=== PATIENT | male | born 1945 | race Caucasian/White ===

== ENCOUNTER 2018-07-12 05:02 | Inpatient (IN) ==
--- NOTE | 2018-07-08 09:25 | Anesthesiology Consultation ---
Date of Service July 08, 2018 Assessment & Plan (1) Encounter for pre-operative examination: Chart Review Chart Review: Acceptable Risk for Surgery and Patient NOT seen in Pre Admission Testing Consults Requested none History Surgery Operation Date: 07/12/18 07:15 Proposed Procedures p Transurethral Resection Prostate - Jean Claude Jeronimo MD Height/Weight Height: 5 ft 7 in Weight: 90.718 kg Allergies Allergy/AdvReac Type Severity Reaction Status Date / Time No Known Allergies Allergy Unverified 09/07/12 06:57 Medications Home Medications Medication Instructions Recorded Confirmed Last Taken cephalexin 500 mg PO TID 06/30/18 06/30/18 06/30/18 cholecalciferol (vitamin D3) 2,000 unit PO QAM 06/30/18 06/30/18 Unknown [Vitamin D3] finasteride 5 mg PO QPM 06/30/18 06/30/18 06/29/18 rosuvastatin 20 mg PO QPM 06/30/18 06/30/18 06/29/18 tamsulosin 0.4 mg PO QPM 06/30/18 06/30/18 06/29/18 Past Medical History Medical History Enlarged prostate Hyperlipidemia Past Family History Family History Brother Family history of prostate cancer Father Family history of prostate cancer Past Surgical History Surgical History History of colonoscopy Hx of LASIK BILATERAL Social History Smoking Status: Former smoker tobacco type: cigarettes Do You Dip or Chew Tobacco: No Smoking End Date: QUIT 40 YRS AGO Hx Alcohol Use: Yes Alcohol type: beer Alcohol Intake Frequency Comment: NONE OVER LAST MONTH/ RARE Hx Substance Use: No substance use type: does not use Testing Electrocardiogram Date: 03/24/18 Findings: + SB @ (59) sinus bradycardia with fusion complexes. otherwise normal ecg. Chest X-Ray Date: 06/24/18 Findings: + NAD
[2018-07-12] MEDS ORDERED: LR 15ML/HR IV SCH (06:00)
[2018-07-12] MEDS ORDERED: cefTRIAXone SODIUM 1,000 MG in DEXTROSE 5% 50 ML IV SCH (06:00)
[2018-07-12] MEDS ORDERED: fentaNYL citrate 100 MCG/2 ML VIAL ONE (06:38)
[2018-07-12] MEDS ORDERED: DEXAMETHASONE SOD INJ 4 MG/ML VIAL ONE (06:38)
[2018-07-12] MEDS ORDERED: LIDOCAINE HCL 2% 2 ML VIAL/AMP(20MG/ML) INFIL ONE (06:38)
[2018-07-12] MEDS ORDERED: ONDANSETRON INJ 2 MG/ML 2 ML VIAL ONE (06:38)
[2018-07-12] MEDS ORDERED: PROPOFOL IV EMULSION 10 MG/ML 20 ML VIAL IV ONE (06:38)
[2018-07-12] MEDS ORDERED: ONDANSETRON INJ 2 MG/ML 2 ML VIAL IV PRN ×2 (06:56→10:08)
[2018-07-12] MEDS ORDERED: LABETALOL HCL IV 5 MG/ML 20ML IV PRN (06:56)
[2018-07-12] MEDS ORDERED: ATROPINE SULFATE 0.1 MG/ML 10ML SYR IV PRN (06:56)
--- NOTE | 2018-07-12 07:15 | History & Physical Bridge Note ---
Date of Service July 12, 2018 History & Physical Bridge Note I have examined the patient, reviewed the History & Physical and in the interval since the performance of the History & Physical I have noted the following changes of clinical significance: no changes noted
[2018-07-12] MEDS ORDERED: ePHEDrine sulfate 50 MG/ML SYR ONE (08:50)
--- NOTE | 2018-07-12 09:06 | Operative Report ---
Post Operative Report Pre & Post Diagnosis Operation Date: 07/12/18 07:15 Pre-Op Diagnosis: Benign Prostatic Hyperplasia; Urinary Retention Post-Op Diagnosis: Benign Prostatic Hyperplasia; Urinary Retention Procedure Operation Date: 07/12/18 07:15 Actual Procedures p Transurethral Resection Prostate(Not Applicable) - Jean Claude Jeronimo MD Surgeon Pino Jeronimo MD Meat Department Manager none Estimated Blood Loss 5 Findings Consistent with Post-Op Diagnosis Specimens Prostate chips Description of Procedure Patient was identified in the preoperative holding area, appropriate informed consents reviewed and completed and the patient was transported to the operating suite. Upon arrival he received appropriate preoperative antibiotics in the form of ciprofloxacin. Adequate general anesthesia was achieved and the patient was placed in dorsal lithotomy position where he was sterilely prepped and draped in standard fashion. To begin the case I passed a 27 Guyanese resectoscope with 30 degree lens and visual armored machine operator. Inspection of the urethra revealed no evidence of stricture disease. His prostate was notably enlarged with substantial lateral lobe hypertrophy as well as a large intravesical median lobe. Inspection of the bladder was limited secondary to the intravesical median lobe. After performing my maximal inspection, exchange the visual obturator for a resecting element, initially choosing a button electrode. I incised the bladder neck at 5 and 7:00 which allowed further inspection of the bladder. Ureteral orifices were identified as was a diverticulum on the right posterior lateral wall. This is a relatively large diverticulum. I then began by resection of the left lateral lobe as well as the right lateral lobe. This allowed good visualization of the remaining aspects of the prostate utilizing a loop electrode, I resected the intravesical median lobe flush with the bladder neck. I then continue to use the loop to complete my resection of the left and right lateral lobes. After deeming the bulk of the prostate treated, I evacuated all of the chips and returns to the loop electrode. I then smoothed to the entire prostate and resected apical tissue. I ensured excellent hemostasis. I inspected the bladder, noted that several chips and followed into the large bladder diverticulum, I evacuated the chips. At that time, I concluded the case. I left a 22 Guyanese Davis catheter in the bladder with 30 cc in the balloon. Patient was substernally extubated and taken to the PACU in stable condition. There were no complications. I attest to the content of the Intraoperative Record and any orders documented therein. Any exceptions are noted below.
[2018-07-12] MEDS: fentaNYL citrate 100 MCG/2 ML VIAL IV PRN ×4 (09:20→09:35)
[2018-07-12] MEDS ORDERED: OXYCODONE HCL IR 5 MG TAB (IMMEDIATE RELEASE) PO PRN (10:08)
[2018-07-12] MEDS ORDERED: FAMOTIDINE 20 MG in SYRINGE 3 ML IV SCH (10:08)
[2018-07-12] MEDS ORDERED: ACETAMINOPHEN 325 MG TAB PO PRN (10:08)
[2018-07-12] MEDS ORDERED: BELLADONNA/OPIUM SUPP 60 MG SUPP PR PRN (10:08)
[2018-07-12] MEDS: OXYCODONE/ACETAMINOPHEN 5mg/325mg TAB PO PRN ×2 (10:42→18:06)
[2018-07-12] MEDS: LACTATED RINGER'S 1,000 ML IV SCH ×2 (10:43→20:37)
--- NOTE | 2018-07-12 11:02 | Anesthesiology Progress Note ---
Date of Service July 12, 2018 Anesthesia Post Procedure Vital Signs Vital Signs: Temp Pulse Pulse Resp BP Pulse Ox 07/12/18 09:50 68 16 120/79 98 07/12/18 09:40 66 16 121/69 95 07/12/18 09:30 66 16 118/72 94 07/12/18 09:20 70 16 127/75 100 07/12/18 09:14 36.6 C 77 16 130/73 99 07/12/18 06:01 36.5 C 63 Pain Intensity Penis: Pain Intensity: 3 Notes Mental Status: alert / awake / arousable Patient Amnestic to Procedure: Yes Nausea / Vomiting: adequately controlled Pain: adequately controlled Airway Patency, RR, SpO2: stable & adequate BP & HR: stable & adequate Hydration State: stable & adequate Anesthetic Complications: no major complications apparent
[2018-07-12] MEDS ORDERED: ZOLPIDEM TARTRATE 5 MG TAB PO PRN (17:28)
[2018-07-12] MEDS: DOCUSATE SODIUM 100 MG CAP PO SCH (20:33)
[2018-07-12] MEDS: CIPROFLOXACIN 500 MG TAB PO SCH (20:33)
[2018-07-12] MEDS: FAMOTIDINE 20 MG TAB PO SCH (20:33)
[2018-07-12] MEDS ORDERED: ROSUVASTATIN CALCIUM 20 MG TAB PO SCH (21:00)
[2018-07-12] MEDS ORDERED: FINASTERIDE 5 MG TAB PO SCH (21:00)
--- NOTE | 2018-07-13 07:42 | Discharge Summary ---
Date of Service July 13, 2018 Principal Diagnosis BPH/urinary retention Discharge Data Allergies Allergy/AdvReac Type Severity Reaction Status Date / Time No Known Allergies Allergy Unverified 07/12/18 05:29 Procedures Performed Operation Date: 07/12/18 07:15 Actual Procedures p Transurethral Resection Prostate(Not Applicable) - Jean Claude Jeronimo MD Hospital Course (1) Urinary retention: Admitted, uneventful. Passed voiding trial on POD #1. D/c'ed home in stable condition. Total Time Total Time Spent Total Time Spent (In Minutes): 5 min Discharge Plan Discharge Items Patient Disposition: Home - Self-Care Reason For Visit: Benign Prostatic Hyperplasia; Urinary Retention Discharge Diagnosis: BPH/Urinary retention Discharge Goals: Decrease discomfort, Improve disease control, Improve function and Increase independence Activity: Resume your previous activity Lifting: Gradually increase as tolerated Bathing: No limitations Sexual Activity: When tolerated Exercise/Sports: Gradually increase as tolerated Driving/Machine Use: No limitations Driving/Machine Use Comment: Don't drive while on pain meds Non-emergency contact: Urologist Call non-emergency contact if: you have any medication questions, your pain is not controlled, you have a fever and your temperature is above 101.5 Follow-up/Referrals: Agustín Ramirez [Primary Care Provider] - Diet: Regular Addtl Provider Instructions: It is normal to see blood over the course of the next month to 6 weeks. If you have significant burning with urination, you can use AZO (available over the counter) Prescriptions: New ciprofloxacin HCl [Cipro] 500 mg tablet 500 mg PO BID Qty: 6 RF: 0 hydrocodone-acetaminophen 5-325 mg tablet 1 tab PO Q6H PRN (Reason: pain) Qty: 15 RF: 0 No Action tamsulosin 0.4 mg Capsule 0.4 mg PO QPM RF: 0 finasteride 5 mg Tablet 5 mg PO QPM RF: 0 rosuvastatin 20 mg Tablet 20 mg PO QPM RF: 0 cholecalciferol (vitamin D3) [Vitamin D3] 2,000 unit Capsule 2,000 unit PO QAM RF: 0 Visit Report Forms: My [facility] Stand-Alone Forms: [facility] Discharge Orders: Discharge Order (Routine); Ordered 07/13/18 Ordered By: Jean Claude Jeronimo Admission Data Admit Date/Time: 07/12/18 09:23 Attending Provider: Jean Claude Jeronimo Admit Provider: Jean Claude Jeronimo Primary Care Provider: Agustín Ramirez Service: Medical
--- NOTE | 2018-07-13 07:44 | Urology Progress Note ---
Date of Service July 13, 2018 Assessment & Plan (1) Urinary retention: d/c urbano d./c home Subjective Did very well overnight - no major issues - urine cranberry this AM - no pain Physical Exam 2 Vital Signs (Past 24 Hours): Last Vital Signs Temp 36.8 C 07/13/18 07:24 Pulse 70 07/13/18 07:24 Resp 14 07/13/18 07:24 BP 134/74 07/13/18 07:24 Pulse Ox 98 07/13/18 07:24 Physical Exam: NAD AAOx3 no resp distress abd soft urine cranberry
--- NOTE | 2018-07-13 08:20 | Anesthesiology Progress Note ---
Date of Service July 13, 2018 Anesthesia Post Procedure Vital Signs Vital Signs: Temp Pulse Pulse Resp BP Pulse Ox Pulse Ox 07/13/18 08:16 36.8 C 68 70 14 134/74 98 07/13/18 07:24 36.8 C 70 14 134/74 98 07/13/18 03:14 36.6 C 66 16 116/58 L 98 07/13/18 00:15 95 07/12/18 22:51 36.6 C 64 16 122/67 97 07/12/18 18:52 36.6 C 70 18 108/67 97 07/12/18 15:07 36.4 C L 72 18 132/68 97 07/12/18 13:16 74 18 131/72 96 07/12/18 12:08 77 18 119/74 97 07/12/18 11:10 62 17 111/68 97 07/12/18 09:50 68 16 120/79 98 07/12/18 09:40 66 16 121/69 95 07/12/18 09:30 66 16 118/72 94 07/12/18 09:20 70 16 127/75 100 07/12/18 09:14 36.6 C 77 16 130/73 99 Pain Intensity Penis: Pain Intensity: 2 Notes Mental Status: alert / awake / arousable and participated in evaluation Patient Amnestic to Procedure: Yes Nausea / Vomiting: adequately controlled Pain: adequately controlled Airway Patency, RR, SpO2: stable & adequate BP & HR: stable & adequate Hydration State: stable & adequate Anesthetic Complications: no major complications apparent
[2018-07-13] MEDS: FAMOTIDINE 20 MG TAB PO SCH (08:37)
[2018-07-13] MEDS: DOCUSATE SODIUM 100 MG CAP PO SCH (08:37)
[2018-07-13] MEDS: CIPROFLOXACIN 500 MG TAB PO SCH (08:38)
[2018-07-13] MEDS ORDERED: CHOLECALCIFEROL 1,000 UNITS TAB PO SCH (09:00)
== END 2018-07-13 10:45 | disposition home or self-care (01) | DRG 714 ==
LOC: ASU 05:02 → 3N 09:23

== ENCOUNTER 2019-11-01 05:18 | Observation (INO) ==
--- NOTE | 2019-10-26 12:53 | Anesthesiology Consultation ---
Date of Service October 26, 2019 Assessment & Plan (1) Encounter for pre-operative examination: Chart Review Chart Review: Acceptable Risk for Surgery and Patient NOT seen in Pre Admission Testing History Surgery Operation Date: 11/01/19 08:20 Proposed Procedures p Transurethral Resection of the Prostate - Jean Claude Jeronimo MD Height/Weight Height: 5 ft 7 in Weight: 88.451 kg Allergies Allergy/AdvReac Type Severity Reaction Status Date / Time No Known Allergies Allergy Verified 10/04/19 09:15 Medications Home Medications Medication Instructions Recorded Confirmed Last Taken cholecalciferol (vitamin D3) 2,000 unit PO QAM 06/30/18 10/04/19 Unknown [Vitamin D3] rosuvastatin 20 mg PO QPM 06/30/18 10/04/19 07/10/18 20:00 finasteride 5 mg PO QPM 10/04/19 10/04/19 Unknown tamsulosin 0.4 mg PO QPM 10/04/19 10/04/19 Unknown Past Medical History Medical History Enlarged prostate Hyperlipidemia Past Family History Family History Brother Family history of prostate cancer Father Family history of prostate cancer Family history of diabetes mellitus Past Surgical History Surgical History H/O cystoscopy BLADDER TEAR REPAIR History of colonoscopy Hx of LASIK BILATERAL Hx of transurethral resection of prostate [place] teeth removed Social History Smoking Status: Never smoker tobacco type: cigarettes Do You Dip or Chew Tobacco: No Hx Alcohol Use: Yes Alcohol type: beer and wine alcohol intake frequency: a few times a month Hx Substance Use: No substance use type: does not use Testing Laboratory Results 10/21/19 WBC: 7.72 H/H: 15.3/45.1 PLATELETS: 300 Creatinine: 0.96 Electrocardiogram Date: 10/21/19 Findings: + NSR @ (60bpm) Chest X-Ray Date: 10/21/19 Findings: + NAD
[2019-11-01] MEDS ORDERED: CIPROFLOXACIN / D5W 400 MG/200 ML BAG IV SCH (06:00)
[2019-11-01] MEDS ORDERED: LR 15ML/HR IV SCH (06:00)
[2019-11-01] MEDS ORDERED: ePHEDrine sulfate 50 MG/ML SYR ONE (06:49)
[2019-11-01] MEDS ORDERED: PHENYLEPHRINE 100MCG/ML 5ML SYR ONE (06:49)
[2019-11-01] MEDS ORDERED: fentaNYL citrate 100 MCG/2 ML VIAL ONE (06:49)
[2019-11-01] MEDS ORDERED: MIDAZOLAM HCL 1 MG/ML 2ML VIAL ONE (06:49)
[2019-11-01] MEDS ORDERED: DEXAMETHASONE SOD INJ 4 MG/ML VIAL ONE (06:49)
[2019-11-01] MEDS ORDERED: LIDOCAINE HCL 2% 2 ML VIAL/AMP(20MG/ML) INFIL ONE (06:49)
[2019-11-01] MEDS ORDERED: ONDANSETRON INJ 2 MG/ML 2 ML VIAL ONE (06:49)
[2019-11-01] MEDS ORDERED: PROPOFOL IV EMULSION 10 MG/ML 20 ML VIAL IV ONE (06:49)
[2019-11-01] MEDS ORDERED: ATROPINE SULFATE 0.1 MG/ML 10ML SYR IV PRN (06:56)
[2019-11-01] MEDS ORDERED: ePHEDrine sulfate 50 MG/ML AMP IV PRN (06:56)
[2019-11-01] MEDS ORDERED: fentaNYL citrate 100 MCG/2 ML VIAL IV PRN (06:56)
[2019-11-01] MEDS ORDERED: ONDANSETRON INJ 2 MG/ML 2 ML VIAL IV PRN ×2 (06:56→10:03)
[2019-11-01] MEDS ORDERED: PROMETHAZINE HCL 6.25 MG in SODIUM CHLORIDE 0.9% 50 ML IV PRN (06:56)
--- NOTE | 2019-11-01 07:07 | History & Physical Report ---
Date of Service November 01, 2019 Assessment & Plan (1) Benign prostatic hyperplasia with urinary obstruction: (2) Urinary retention: Cystoscopy, TURP to reopen the prostate and bladder neck 23-hour observation stay Risks, benefits, alternatives discussed History of Present Illness Primary Care Provider: Agustín Ramirez Progressive urinary difficulties over the past several months Cystoscopy in the office revealed an extremely tight bladder neck and prostatic urethra He has been on the verge of urinary retention now for 2 months but able to survive without a catheter We have delayed his surgery secondary to the coronavirus crisis, however we can delay no longer and we are moving forward with surgery today to reopen his prostate and bladder neck via TURP Allergies Allergy/AdvReac Type Severity Reaction Status Date / Time No Known Allergies Allergy Verified 11/01/19 05:48 Home Medications Home Medications Medication Instructions Recorded Confirmed Type cholecalciferol (vitamin D3) 2,000 unit PO QAM 06/30/18 11/01/19 History [Vitamin D3] rosuvastatin 20 mg PO QPM 06/30/18 11/01/19 History finasteride 5 mg PO QPM 10/04/19 11/01/19 History tamsulosin 0.4 mg PO QPM 10/04/19 11/01/19 History Past Med/Surg History Medical History Enlarged prostate Hyperlipidemia Surgical History H/O cystoscopy BLADDER TEAR REPAIR History of colonoscopy Hx of LASIK BILATERAL Hx of transurethral resection of prostate [place] teeth removed Family History Brother Family history of prostate cancer Father Family history of prostate cancer Family history of diabetes mellitus Social History Preferred Language: Ukrainian Communication Ability: Effective Environmental Health Safety Engineer Required: No Beliefs That Will Affect Care: None Current Living Situation: Spouse Other Information That Helps Us Care for You: No Feels Safe at Home: Yes Safety Concerns: Feels Safe At This Time Smoking Status: Never smoker Tobacco Type: cigarettes ; Do You Dip or Chew Tobacco: No ; Second Hand Exposure: No ; Tobacco Cessation Education Requested by Patient: No Hx Alcohol Use: Yes Alcohol type: beer and wine Hx Substance Use: No Review of Systems no fever, no chills and no fatigue no worsening vision no facial pain and no pain with swallowing no cough and no dyspnea no chest pain and no palpitations no abdominal pain, no nausea and no vomiting no back pain no rash and no urticaria no gait abnormality and no unsteadiness no behavioral changes and no depression no fatigue Physical Exam Constitutional: well developed and well nourished Neck: neck nontender Respiratory: normal respiratory effort; no respiratory distress and does not use accessory muscles Cardiovascular: Rate/Rhythm: regular rate Vessels: radial pulses present Extremities: no edema Gastrointestinal (Abdomen): Inspection/Auscultation: abdomen normal to inspection Percussion/Palpation: abdomen soft; abdomen nontender and no guarding Musculoskeletal: Head/Neck/Chest: normocephalic and head atraumatic Extremities: extremities normal to inspection Skin: no rashes and no lesions Trauma: no evidence of skin trauma Neurologic: awake; not obtunded Speech / Cognition: normal speech M otor/Sensory: no tremor Psychiatric: Orientation: alert and oriented x 3 Genitourinary: no CVA tenderness Lymphatic: no lymphadenopathy Results & Data Vital Signs (Past 12 Hours) Vital Signs Temp Pulse Resp BP Pulse Ox 11/01/19 05:42 37.2 C 60 18 138/77 98
--- NOTE | 2019-11-01 08:56 | Operative Report ---
PG Post Operative Report Pre & Post Diagnosis Operation Date: 11/01/19 07:15 Pre-Op Diagnosis: Benign Prostate Hyperplasia, Urinary Retention Post-Op Diagnosis: Benign Prostate Hyperplasia, Urinary Retention I identified the patient and participated in the time-out.: Yes Procedure Operation Date: 11/01/19 07:15 Actual Procedures p Transurethral Resection of the Prostate(Not Applicable) - Jean Claude Jeronimo MD Surgeon Pino Jeronimo MD Head Nurse none Estimated Blood Loss 5 Findings Consistent with Post-Op Diagnosis Specimens none Description of Procedure The patient was identified in the preoperative holding area, appropriate informed consents were reviewed and completed and the patient was transferred to the operative suite. Upon arrival, appropriate antibiotics and anesthesia were administered and the patient was placed in dorsal lithotomy position and prepped and draped in sterile fashion. To begin the case I attempted to pass a resectoscope with 30 degree lens and visual obturator. I was able to advance the scope through the bulb of the urethra and then entered into the prostate, but I was unable to advance it into the bladder given a pinpoint bladder neck opening and obstructed prostatic urethra. I therefore exchanged the resectoscope for a standard 22 Burkinan cystoscope, this allowed slightly better manipulation and I was able to identify a cath into the bladder and gently push the scope through that opening. This somewhat dilated the bladder neck but also allowed complete visualization of the bladder. The bladder mucosa itself was quite healthy. Ureteral orifices were identified. There were no stones or other masses within the bladder. Following this gentle dilation with a 22 Burkinan scope I was able to return with a resectoscope and gently passed it through the bladder neck. As I was able to further visualize the bladder neck I passed a button electrode and I incised the bladder neck at 5 and 7:00 opening it further. This allowed better interpretation of the tissue and ultimately I began to resect residual tissue and scar from the bladder neck and prostate and to let adequately open the prostatic urethra. Of note, he had a prior TURP, and while a lot of tissue was resected I believe his prostatic capsule is contracted pushing further tissue in his he had a substantial amount of residual obstructive tissue. I proceeded to resect the left lateral wall, the bladder neck, the right lateral wall, the floor of the prostate, small amount of residual intravesical tissue and then ultimately trimmed the apical tissues on the right and left. Hemostasis was excellent at the conclusion of the case. The visual inspection of the prostatic urethra revealed open and widely patent prostatic urethra. I placed a 22 Burkinan catheter without difficulty and concluded the case. There were no complications. He tolerated this very well. I attest to the content of the Intraoperative Record and any orders documented therein. Any exceptions are noted below.
--- NOTE | 2019-11-01 09:25 | Anesthesiology Progress Note ---
Date of Service November 01, 2019 Anesthesia Post Procedure Vital Signs Vital Signs: Temp Pulse Pulse Resp BP Pulse Ox 11/01/19 09:15 73 14 118/78 100 11/01/19 09:05 36.4 C L 76 16 132/78 100 11/01/19 05:42 37.2 C 60 18 138/77 98 Transfer of Care Handoff Completed per policy Notes Mental Status: alert / awake / arousable Patient Amnestic to Procedure: Yes Nausea / Vomiting: adequately controlled Pain: adequately controlled Airway Patency, RR, SpO2: stable & adequate BP & HR: stable & adequate Hydration State: stable & adequate Anesthetic Complications: no major complications apparent
[2019-11-01] MEDS ORDERED: ACETAMINOPHEN 325 MG TAB PO PRN (10:03)
[2019-11-01] MEDS ORDERED: HYDROCODONE/ACETAMOPHEN 5/325MG TAB PO PRN ×2 (10:03)
[2019-11-01] MEDS: LACTATED RINGER'S 1,000 ML IV SCH ×2 (11:18→19:14)
[2019-11-01] MEDS: CHOLECALCIFEROL 1,000 UNITS 25 MCG TAB PO SCH (12:56)
[2019-11-01] MEDS ORDERED: DiphenhydrAMINE HCL 50 MG/ML VIAL IV PRN (15:57)
[2019-11-01] MEDS: CIPROFLOXACIN / D5W 400 MG/200 ML BAG IV SCH (19:13)
[2019-11-01] MEDS ORDERED: ROSUVASTATIN CALCIUM 20 MG TAB PO SCH (21:00)
[2019-11-01] MEDS ORDERED: FINASTERIDE 5 MG TAB PO SCH (21:00)
[2019-11-02] MEDS: LACTATED RINGER'S 1,000 ML IV SCH (05:21)
[2019-11-02 05:47] LABS: Basophils # (auto) 0.03 K/uL (0-0.2); Basophils % (auto) 0.2 %; Eosinophils # (auto) 0.03 K/uL (0-0.5); Eosinophils % (auto) 0.2 %; Hematocrit (blood only) 40.5 % (42-52); Hemoglobin 13.7 g/dL (14.0-18.0); Immature Granulocytes # (auto) 0.04 K/uL (0.00-0.02); Immature Granulocytes % (auto) 0.2 %; Lymphocytes # (auto) 1.72 K/uL (1.2-3.4); Lymphocytes % (auto) 10.2 %; Mean Corpuscular Hemoglobin 29.6 pg (25-34); Mean Corpuscular Hgb Conc 33.8 g/dL (32-36); Mean Corpuscular Volume 87.5 fL (80-100); Mean Platelet Volume 9.5 fL (7.4-10.4); Monocytes # (auto) 1.76 K/uL (0.11-0.59); Monocytes % (auto) 10.5 %; Neutrophils # (auto) 13.25 K/uL (1.4-6.5); Neutrophils % (auto) 78.7 %; Platelet Count 245 K/uL (130-400); RDW Coefficient of Variation 13.2 % (11.5-14.5); RDW Standard Deviation 42.1 fL (36.4-46.3); Red Blood Count 4.63 M/uL (4.7-6.1); White Blood Count 16.83 K/uL (4.8-10.8)
[2019-11-02] MEDS: CIPROFLOXACIN / D5W 400 MG/200 ML BAG IV SCH (06:04)
[2019-11-02 06:27] LABS: BUN Creatinine Ratio 16.4 (10-20); Calcium 8.6 mg/dl (8.5-10.1); Creatinine Clr Calc Pharmacy 67.6 ml/min; Est GFR (African American) 82.6; Est GFR (Non-African American) 71.2; Potassium 3.9 mmol/L (3.5-5.1)
--- NOTE | 2019-11-02 08:03 | Urology Progress Note ---
Date of Service November 02, 2019 Assessment & Plan (1) Urinary retention: (2) Benign prostatic hyperplasia with urinary obstruction: voiding trial today home after he voids Subjective no issues overnight no pain urine draining well labs stable (slightly leukocytosis - likely reactive?) Physical Exam Physical Exam: urine clear comfortable appearing Results & Data Vital Signs (Past 12 Hours) Vital Signs Temp Pulse Resp BP Pulse Ox 11/02/19 07:28 36.4 C L 62 18 138/75 96 11/02/19 03:36 36.6 C 68 17 127/71 97 11/01/19 23:16 36.7 C 68 16 115/66 98 PG Care Time/CCT Total # of Minutes Spent Total Time Spent with Patient: Total time spent is greater than 50% in coordination of care (as documented) at patient's floor/unit and/or counseling patient: Coding Level of Care Code None Diagnoses Urinary retention R33.9 Benign prostatic hyperplasia with urinary obstruction N40.1; N13.8
[2019-11-02] MEDS: CHOLECALCIFEROL 1,000 UNITS 25 MCG TAB PO SCH (08:35)
[2019-11-02] MEDS ORDERED: CHOLECALCIFEROL 1,000 UNITS 25 MCG TAB PO SCH ×2 (09:00→10:30)
--- NOTE | 2019-11-03 16:34 | Discharge Summary ---
Date of Service November 03, 2019 Admission HPI Per Admitting Provider Progressive urinary difficulties over the past several months Cystoscopy in the office revealed an extremely tight bladder neck and prostatic urethra He has been on the verge of urinary retention now for 2 months but able to survive without a catheter We have delayed his surgery secondary to the coronavirus crisis, however we can delay no longer and we are moving forward with surgery today to reopen his prostate and bladder neck via TURP Principal Diagnosis BPH Discharge Data Allergies Allergy/AdvReac Type Severity Reaction Status Date / Time No Known Allergies Allergy Verified 11/01/19 05:48 Procedures Performed Operation Date: 11/01/19 07:15 Actual Procedures p Transurethral Resection of the Prostate(Not Applicable) - Jean Claude Jeronimo MD Hospital Course (1) Benign prostatic hyperplasia with urinary obstruction: Admitted for TURP details of the surgery as dictated previously. post operatively he did very well passed a voiding trial on the morning of POD#1 and was discharged in stable condition Total Time Total Time Spent Total Time Spent (In Minutes): 15 Total Time Includes: Examination of the Patient, Discharge Planning and Medication Reconciliation Discharge Plan Discharge Items Patient Disposition: Home - Self-Care Reason For Visit: Benign Prostate Hyperplasia, Urinary Retention Discharge Diagnosis: BPH, urinary retention Activity: Resume your previous activity Lifting: Gradually increase as tolerated Bathing: No limitations Sexual Activity: When tolerated Exercise/Sports: Gradually increase as tolerated Driving/Machine Use: No limitations Non-emergency contact: Urologist Call non-emergency contact if: you have any medication questions, your pain is worsening, you have a fever and your temperature is above 101.5 Follow-up/Referrals: Agustín Ramirez [Primary Care Provider] - Diet: Regular Addtl Attending Provider Instructions: Please take all medications as prescribed and keep follow-ups as scheduled. Please call our office at [phone] with any questions, concerns or need to reschedule appointments for any reason. We are happy to assist you. While catheter is in place, please wash with warm soapy water and a fresh washcloth twice a day with mild bar soap (Dove, Dial, etc.). Your nursing visit appointment to have your catheter removed should already be made, if you have any question regarding this, please call our office. Complete antibiotics as prescribed, if indicated. It is okay to take AZO (available over the counter) as needed for a few days to relieve burning with urination. This may cause your urine or feces to turn an orangish-color. This is expected. The only exception is if you have been pres cribed Pyridium (phenazopyridine), this is the same medication and should not take AZO be taken in addition to prescription version. Please do not drive, drink alcohol or operate machinery while taking prescription pain medication. We recommend continuing a stool softener (i.e. Colace) to prevent constipation/straining for at least two weeks after your procedure. Some blood is to be expected in your urine as you heal, you may even see recurrences of blood in your urine for up to 4-6 months after your procedure. Drink plenty of fluids, avoid sexual or strenuous exercise and do not lift >25 pounds until your follow-up. Call [facility] at [phone] promptly if you experience: Fever of 101F or greater Pain thats not controlled with medicine Trouble urinating or inability to urinate Dark, bloody urine for more than 12 hours Pending Studies at Discharge: No Stand-Alone Forms: My [facility], Smoking Cessation Medications and DC Order Prescriptions: New ciprofloxacin HCl [Cipro] 500 mg tablet 500 mg PO BID Qty: 6 RF: 0 Continued rosuvastatin 20 mg Tablet 20 mg PO QPM RF: 0 cholecalciferol (vitamin D3) [Vitamin D3] 2,000 unit Capsule 2,000 unit PO QAM RF: 0 Discontinued tamsulosin 0.4 mg capsule 0.4 mg PO QPM RF: 0 finasteride 5 mg tablet 5 mg PO QPM RF: 0 Discharge Orders: Discharge Order (Routine); Ordered 11/02/19 Ordered By: Jean Claude Jeronimo Admission Data Admit Date/Time: 11/01/19 09:12 Attending Provider: Jean Claude Jeronimo Admit Provider: Jean Claude Jeronimo Primary Care Provider: Agustín Ramirez Other Interventions: Discharge Summary Assessment (RN) Last Done: 11/02/19 09:11 DC Date/Time DO NOT enter until pt leaves facility: 11/02/19 10:00 Coding Level of Care Code D/C Day Management <30 mins Diagnoses Benign prostatic hyperplasia with urinary obstruction N40.1; N13.8
== END 2019-11-02 10:00 | disposition home or self-care (01) ==
LOC: 3E 05:18 → ASU 05:18
DX: E78.5 Hyperlipidemia, unspecified; Z79.899 Other long term (current) drug therapy; N13.8 Other obstructive and reflux uropathy; N40.1 Benign prostatic hyperplasia with lower urinary tract symptoms; R33.9 Retention of urine, unspecified